=== PATIENT | male | born 1950 ===

== ENCOUNTER 2021-02-02 09:11 | Outpatient (REF) | payer SELFPAY | END 2021-02-02 09:12 | disposition home or self-care (01) | LOC: HO.HAP 09:11 | PROVIDERS: Visit Provider Family Medicine | DX: Z13.89 Encounter for screening for other disorder (principal) ==

== ENCOUNTER 2021-02-03 10:20 | Outpatient (REF) | payer SELFPAY ==
--- NOTE | 2021-02-03 13:12 | MHC.AU.HFU ---
Hearing Instrument Follow-Up- Binaural Date of Visit: 02/03/21 Right Ear: Sheet Mill Supervisor: Phonak Model: Bolero Q 50-SP BTE Serial Number: [id number] Repair Warranty: Battery Size: 13 Color: Silver Azul Tubing: Tube Lock Type of Mold: Microsonic Skeleton Dispensed By: [facility] Date of Fittin05/23/2014 Left Ear:Sheet Mill Supervisor: Phonak Model: Bolero Q 50-SP NOW PROGRAMMED FOR THE RIGHT EAR PER PATIENT REQUEST Serial Number: [id number] Repair Warranty: Battery Size: 13 Color: Silver Azul Tubing: Tube Lock Type of Mold: Microsonic Skeleton Dispensed By: [facility] Date of Fittin05/23/2014 Follow-Up Summary: Patient reports he needs the right aid to be louder as he continues to need to increase the volume and he wants the left aid to be programmed for the right ear. Discussed how increasing volume may actually make understanding worse since it may cause distortion. Patient insisted he wanted the aids louder and I increased to patient preference. Transferred right aid setting to the left aid. Patient wanted the aids even louder, but reaching limits of the aids. Patient said after yesterday's appointment when he continued to not hear well, he changed the hearing aids and earmolds several times so he did not know which aid or mold he was using. We did change to patient's old right earmold which seems to fit a bit better without feedback. Patient also thought we broke his left earmold yesterday when cleaning and retubing the mold/aids. As documented yesterday, the left earmold skeleton area was split before the aids were touched in the office and reminded patient we had discussed that yesterday. Patient reported he had not been wearing the left aid for a period of time so he does not remember it being broken. While patient was in the appointment with me today, he received a phone call from the [employer] as he was looking for executive vice president and chief financial officer for a new hearing aid for the right ear. This program will only document the cost of the hearing aid by a paid receipt from the dispenser as a medical expense which helps with tax deductions. They do not provide direct financial support for patient cost. Patient was hearing the phone call much better due to the programming change to the aid just prior to the phone call. However, his comprehension of the explanation from [employer] calling was misinterpreted by the patient. He continued to think the program would help him with the payment for an aid. I needed to explain several times in different ways to help him understand that if he went through this program, he had to pay in full and he would only receive a statement documenting the medical expense for taxes. Wrote a detailed note for the patient to [facility] to see if he can change his plan which has hearing aid benefits. Patient still has not contacted [facility] or Dr. Irving as advised (gave written information with phone numbers and questions to ask). Extensively reviewed the need to contact [facility], [facility], and Dr. Irving. Recommendations:Discussed again the need for new earmolds for both ears. Also discussed how both aids cannot connect for programming which means there is an internal problem with both aids. This office cannot fix the problem and he needs repairs. Patient is considering one new hearing aid. If he does not have any [employer] coverage or not eligible for [facility], he was told he must pay the $350.00 deposit, then $450.00 at the Hearing Aid Fitting. Can set up a payment plan for second half. Diagnosis Code(s): Primary Diagnosis: H90.6 Mixed Hearing Loss, Bilateral Signature: Provider: Marisol Martino, CCC-A
== END 2021-02-03 10:21 | disposition home or self-care (01) ==
LOC: HO.HAP 10:20
PROVIDERS: Visit Provider Family Medicine
DX: Z13.89 Encounter for screening for other disorder (principal)

== ENCOUNTER 2021-07-30 08:33 | Outpatient (REF) | payer SELFPAY | END 2021-07-30 08:34 | disposition home or self-care (01) | LOC: HO.HAP 08:33 | PROVIDERS: Visit Provider Family Medicine | DX: Z13.89 Encounter for screening for other disorder (principal) ==

== ENCOUNTER 2021-08-12 10:21 | Outpatient (REF) | payer SELFPAY | END 2021-08-12 10:22 | disposition home or self-care (01) | LOC: HO.HAP 10:21 | PROVIDERS: Visit Provider Family Medicine | DX: Z13.89 Encounter for screening for other disorder (principal) ==

== ENCOUNTER 2021-09-03 11:17 | Outpatient (REF) | payer SELFPAY ==
--- NOTE | 2021-09-16 11:45 | MHC.AU.HFU ---
Hearing Instrument Follow-Up- Binaural Date of Visit: 09/03/21 Right Ear: Data Designer: Phonak Model: Kayla P 70-UP Serial Number: [id number] Repair Warranty: 09/21/2024 Loss and Damage Warranty: 09/21/2024 Battery Size: 675 Color: Silver Azul Tubing: Tube Lock Dispensed By: [facility] Date of Fittin07/28/2021 Left Ear: Data Designer: Phonak Model: Kayla P 70-UP Serial Number: [id number] Repair Warranty: 09/21/2024 Loss and Damage Warranty: 09/21/2024 Battery Size: 675 Color: Silver Azul Tubing: Tube Lock Dispensed By: [facility] Date of Fittin07/28/2021 Follow-Up Summary: Patient reports he feels the hearing aids are not balanced, with the left side louder than the right. Increased gain in the right side and decreased gain in the left side. Patient was pleased with the change, reporting it now sounds balanced. Patient also reported that when he is using his phone, it feels like the sound around him cuts out. He does not want the microphone level to be the same as the phone; however, he would like it to not be as jarring of a transition. Changed hearing aid microphone mix from -6 dB to -3 dB. Recommendations: Hearing instrument follow-up or maintenance as needed. Diagnosis Code(s): Primary Diagnosis: H90.3 Bilateral Sensorineural Hearing Loss Signature: Provider: Marisol Muse, CCC-A
== END 2021-09-03 11:18 | disposition home or self-care (01) ==
LOC: HO.HAP 11:17
PROVIDERS: Visit Provider Family Medicine
DX: Z13.89 Encounter for screening for other disorder (principal)

== ENCOUNTER 2021-10-14 14:35 | Outpatient (REF) | payer SELFPAY | END 2021-10-14 14:36 | disposition home or self-care (01) | LOC: HO.HAP 14:35 | PROVIDERS: Visit Provider Family Medicine | DX: Z13.89 Encounter for screening for other disorder (principal) ==

== ENCOUNTER 2022-01-10 12:54 | Outpatient (REF) | payer SELFPAY ==
--- NOTE | 2022-01-11 10:50 | MHC.AU.HFU ---
Hearing Instrument Follow-Up- Binaural Date of Visit: 01/10/22 Right Ear: Phonak Kayla P70-UP SN: [id number] Color: Silver Azul Repair Warranty: 09/21/2024 Loss and Damage Warranty: 09/21/2024 Battery Size: 675 Type of Mold: Microsonic Skeleton Dispensed By: [facility] Date of Fittin07/28/2021 Left Ear: Phonak Kayla P70-UP SN: [id number] Color: Silver Azul Repair Warranty: 09/21/2024 Loss and Damage Warranty: 09/21/2024 Battery Size: 675 Type of Mold: Microsonic Skeleton Dispensed By: [facility] Date of Fittin07/28/2021 Follow-Up Summary: Blaine dropped off his right hearing aid as the tone hook was broken. Cleaned the hearing aid and ear mold. Vacuumed the microphones. Replaced the tubing. Did not have adult tone hooks in stock - called [employer] to order more. Replaced broken tone hook with pediatric tone hook to use in the meantime. Recommendations: Called Blaine to explain above. He will waste picker hearing aid to use with pediatric tone hook while waiting for adult tone hooks to arrive. Once adult tone hooks arrive, call Blaine to schedule an appointment to replace the pediatric tone hook. Diagnosis Code(s): Primary Diagnosis: H90.3 Bilateral Sensorineural Hearing Loss Signature: Provider: Randolph Noe, [facility]
== END 2022-01-10 12:55 | disposition home or self-care (01) ==
LOC: HO.HAP 12:54
PROVIDERS: Visit Provider Family Medicine
DX: Z13.89 Encounter for screening for other disorder (principal)

== ENCOUNTER 2022-01-11 11:07 | Outpatient (REF) | payer SELFPAY | END 2022-01-11 11:08 | disposition home or self-care (01) | LOC: HO.HAP 11:07 | PROVIDERS: Visit Provider Family Medicine | DX: Z13.89 Encounter for screening for other disorder (principal) ==

== ENCOUNTER 2022-01-18 14:11 | Outpatient (REF) | payer SELFPAY | END 2022-01-18 14:12 | disposition home or self-care (01) | LOC: HO.HAP 14:11 | PROVIDERS: Visit Provider Family Medicine | DX: Z13.89 Encounter for screening for other disorder (principal) ==

== ENCOUNTER 2022-01-26 10:58 | Outpatient (REF) | payer SELFPAY | END 2022-01-26 10:59 | disposition home or self-care (01) | LOC: HO.HAP 10:58 | PROVIDERS: Visit Provider Family Medicine | DX: Z13.89 Encounter for screening for other disorder (principal) ==

== ENCOUNTER 2022-02-04 14:24 | Outpatient (REF) | payer SELFPAY ==
--- NOTE | 2022-02-04 15:03 | MHC.AU.HA3 ---
Hearing Instrument Follow-Up- Binaural Date of Visit: 02/04/22 Right Ear: Make, Model, Color, Serial Number: Zhou Chinoida P70-UP SN: [id number] Color: Silver Azul Muskrat Trapper Repair Warranty: 09/21/2024 Muskrat Trapper Loss and Damage Warranty: 09/21/2024 [facility] Service Plan: 07/28/2022 [facility] Battery Size: 675 Earmold/Dome/CShell/SlimTip:Microsonic Skeleton Dispensed By: [facility] Date of Fittin07/28/2021 Left Ear: Make, Model, Color, Serial Number: Phonrylie Kayla P70-UP SN: [id number] Color: Silver Azul Muskrat Trapper Repair Warranty: 09/21/2024 Muskrat Trapper Loss and Damage Warranty: 09/21/2024 [facility] Service Plan: 07/28/2022 [facility] Battery Size: 675 Earmold/Dome/CShell/SlimTip: Microsonic Skeleton Dispensed By: [facility] Date of Fittin07/28/2021 Follow-Up Summary: Blaine reported his hearing aids are not streaming phone calls from his cell phone. The hearing aids were not paired to his phone. Repaired the hearing aids and confirmed connection with a phone call in office. Gave Blaine a print out of [employer] instructions for pairing hearing aids to an Android phone for future use. Blaine also reported that he sometimes hears feedback with jaw movement. Did not hear in office today. Advised to ensure molds are pushed securely into ears. Trimmed left tubing slightly. Recommendations: Hearing instrument follow-up or maintenance as needed. Please contact our clinic with any questions or concerns. Diagnosis Code(s): Primary Diagnosis: H90.3 Bilateral Sensorineural Hearing Loss Signature: Provider: Randolph Noe, [facility]
== END 2022-02-04 14:25 | disposition home or self-care (01) ==
LOC: HO.HAP 14:24
PROVIDERS: Visit Provider Family Medicine
DX: Z13.89 Encounter for screening for other disorder (principal)

== ENCOUNTER 2022-03-07 14:02 | Outpatient (REF) | payer SELFPAY ==
--- NOTE | 2022-03-07 15:33 | MHC.AU.HA3 ---
Hearing Instrument Follow-Up- Binaural Date of Visit: 03/07/22 Right Ear: Make, Model, Color, Serial Number: Zhou Garza P70-UP SN: [id number] Color: Silver Azul Cut In Station Operator Repair Warranty: 09/21/2024 Cut In Station Operator Loss and Damage Warranty: 09/21/2024 [facility] Service Plan: 07/28/2022 [facility] Battery Size: 675 Earmold/Dome/CShell/SlimTip:Microsonic Skeleton Dispensed By: [facility] Date of Fittin07/28/2021 Left Ear: Make, Model, Color, Serial Number: Zhou Garza P70-UP SN: [id number] Color: Silver Azul Cut In Station Operator Repair Warranty: 09/21/2024 Cut In Station Operator Loss and Damage Warranty: 09/21/2024 [facility] Service Plan: 07/28/2022 [facility] Battery Size: 675 Earmold/Dome/CShell/SlimTip: Microsonic Skeleton Dispensed By: [facility] Date of Fittin07/28/2021 Follow-Up Summary: Blaine reported that his hearing aids became disconnected from his cellphone after he worked with [email or web address] for other non-hearing aid related issues with his phone. He reportedly tried following the directions given at the last appointment without success. Repaired the hearing aids to his cellphone in office and confirmed successful connection with a phone call. Fam'ilene [id number] directions with Blaine for repairing. Practiced following the steps in office to be able to re-pair at home. Recommendations:Hearing instrument follow-up or maintenance as needed. Diagnosis Code(s): Primary Diagnosis: H90.6 Mixed Hearing Loss, Bilateral Signature: Provider: Randolph Noe, [facility]
== END 2022-03-07 14:03 | disposition home or self-care (01) ==
LOC: HO.HAP 14:02
PROVIDERS: Visit Provider Family Medicine
DX: Z13.89 Encounter for screening for other disorder (principal)

== ENCOUNTER 2022-05-20 12:44 | Outpatient (REF) | payer SELFPAY | END 2022-05-20 12:45 | disposition home or self-care (01) | LOC: HO.HAP 12:44 | PROVIDERS: Visit Provider Family Medicine | DX: Z13.89 Encounter for screening for other disorder (principal) ==

== ENCOUNTER 2023-04-11 11:25 | Outpatient (REF) | payer SELFPAY | END 2023-04-11 11:26 | disposition home or self-care (01) | LOC: HO.HAP 11:25 | PROVIDERS: Visit Provider Family Medicine | DX: Z13.89 Encounter for screening for other disorder (principal) ==

== ENCOUNTER 2023-05-23 12:53 | Outpatient (REF) | payer OTHER, SELFPAY | END 2023-05-23 12:54 | disposition home or self-care (01) | LOC: HO.HAP 12:53 | PROVIDERS: Visit Provider Family Medicine | DX: Z46.1 Encounter for fitting and adjustment of hearing aid (principal); H90.6 Mixed conductive and sensorineural hearing loss, bilateral | CPT/HCPCS: 92593 ==

== ENCOUNTER 2023-07-06 13:42 | Outpatient (REF) | payer MEDICARE, MEDICAID, SELFPAY | END 2023-07-06 13:43 | disposition home or self-care (01) | LOC: HO.HAP 13:42 | PROVIDERS: Visit Provider Family Medicine | DX: Z46.1 Encounter for fitting and adjustment of hearing aid (principal); H90.3 Sensorineural hearing loss, bilateral | CPT/HCPCS: 92593 ==

== ENCOUNTER 2023-07-26 08:11 | Outpatient (REF) | payer SELFPAY | END 2023-07-26 08:12 | disposition home or self-care (01) | LOC: HO.HAP 08:11 | PROVIDERS: Visit Provider Family Medicine | DX: Z13.89 Encounter for screening for other disorder (principal) ==

== ENCOUNTER 2023-08-09 08:12 | Outpatient (AMB) | payer MEDICARE, MEDICAID, SELFPAY ==
[2023-08-09 08:16] VITALS: BP 140/90; PULSE 80; O2SAT 97; BMI 31.8
--- NOTE | 2023-08-09 08:16 | AM.OFFWIN_ITS ---
Intake Vital Signs 08/09/23 08:16 Height 5 ft 6 in Weight 197 lb BMI 31.8 BP 140/90 H Blood Pressure Location Rt brachial Position Sitting Pulse 80 Pulse Source Pulse Oximeter Pulse Oximetry (%) 97 Oxygen Delivery Method Room Air Intake Visit Reasons: EP rt knee pain Intake Note: pt is here for right knee pain Patient Tobacco Use Status: Never used Tobacco Allergies No Known Allergies Allergy (Verified 08/09/23 08:16) Do you need a note to return to daycare/school/sports/work: No HPI HPI Comments History of Present Illness Details 73-year-old male presents today with rig ht knee pain and effusion after suffering a twisting injury while walking his dog. States he has trouble with full extension and complains of pain. No other injury in the fall no loss of consciousness or head injury. [facility] Social History Patient Tobacco Use Status: Never used Tobacco Review of Systems Const All systems reviewed & are unremarkable except as noted in HPI and below Physical Exam Vital Signs: Last Vital Signs Pulse 80 08/09/23 08:16 BP 140/90 H 08/09/23 08:16 Pulse Ox 97 08/09/23 08:16 Oxygen Delivery Method Room Air 08/09/23 08:16 BMI result Body Mass Index 31.8 Extrem Right lower extremity: knee Details: tenderness (Lateral and inferior to the patella), swelling (2+ effusion), abnormal ROM and knee ligament exam abnormal (Pain with extension) Details: pain with axial loading Results Reviewed Results Reviewed: X-ray today shows a high-riding patella evidence of large effusion. It appears he has 2 vascular clips behind his knee but has no history of surgery. Assessment & Plan Assessment & Plan (1) Right knee pain: Code(s): M25.561 - Pain in right knee Plan: The patient was given a drop lock knee brace a [facility] It was instructed to avoid ladders and be sure he was balanced on stairs Plan See plan Orders: Orders XR knee RT 2V Today M25.561 - Pain in right knee Referrals Orthopedics Referral M25.561 - Pain in right knee Medications: New meloxicam 7.5 mg PO DAILY 10 tabs 0RF Coding Level of Care Code Est Pt Level 3 (73420) Diagnoses Right knee pain M25.561
== END 2023-08-09 09:34 | disposition home or self-care (01) ==
PROVIDERS: PCP Family Medicine; Visit Provider Physician Assistant Medical
DX: M25.561 Pain in right knee (principal)
CPT/HCPCS: 99213

== ENCOUNTER 2023-08-09 08:41 | Outpatient (REF) | payer MEDICARE, MEDICAID, SELFPAY ==
--- NOTE | ~2023-08-09 | XR_ITS ---
EXAMINATION: XR KNEE, RIGHT CLINICAL INFORMATION: Right-sided knee pain COMPARISON: None available. TECHNIQUE: Four views of the right knee. FINDINGS: Spurring of the tibial spines noted. Extensive posterior vascular calcifications are noted. There is patellofemoral degenerative change observed as is a small joint effusion. No fracture or destructive process. XR/XR knee RT 2V IMPRESSION: Joint effusion. Degenerative change noted.
== END 2023-08-09 08:42 | disposition home or self-care (01) ==
LOC: HO.HMGCX 08:41
PROVIDERS: PCP Family Medicine; Visit Provider Physician Assistant Medical
DX: M25.561 Pain in right knee (principal)
CPT/HCPCS: 73560

== ENCOUNTER 2023-09-20 08:45 | Outpatient (AMB) | payer MEDICARE, MEDICAID, SELFPAY ==
--- NOTE | 2023-09-20 08:46 | MHC.OFFVIS ---
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 Pt states he fell on his knee and then about 3 days later his leg gave out. Pt states his pain is no longer severe but states he has some intermittent discomfort. He states that he has had similar discomfort in the past which resolved on its own. He takes ibuprofen which gives him fairly good relief. Allergies No Known Allergies Allergy (Verified 09/20/23 08:46) Medication List - Last Reconciled 09/20/23 by Luis Robledo MD fluticasone propionate 50 mcg/actuation sprays intranasal ibuprofen (Advil) 400 mg PO Q6H PFS Social History Patient Tobacco Use Status: Never used Tobacco Physical Exam Const Other: Well-nourished well-developed very friendly male awake alert and oriented x3 in no acute distress Extrem Other: Bilateral lower extremity examination shows good capillary refill, no skin lesions noted, normal sensation light touch Right knee examination shows a minimal effusion, minimal crepitus with range of motion, tenderness along his medial joint line, positive Annmarie's test, no instability Results Reviewed Results Reviewed: X-rays of the patient's right knee show mild joint space narrowing, no acute bony abnormalities Assessment & Plan Assessment & Plan (1) Right knee pain: Code(s): M25.561 - Pain in right knee Category: Medical Plan Mr. Tamez presents with intermittent right knee discomfort due to early degenerative joint disease as well as possible tearing of his medial meniscus. I had a lengthy discussion with the patient regarding the treatment options. At this point the patient's symptoms are improving with activity modifications. We will hold off on a cortisone injection. Will follow up with me on an as-needed basis should his symptoms not plateau at an unacceptable level over the next few months. Feel free to call me at any time should questions regarding his orthopedic management arise. I spent 22 minutes in reviewing the patient's records and imaging studies, seeing the patient and documenting in the medical record. Coding Level of Care Code New Pt Level 3 (95074) Diagnoses Right knee pain M25.561
== END 2023-09-20 09:16 | disposition home or self-care (01) ==
PROVIDERS: PCP Family Medicine; Visit Provider Orthopaedic Surgery
DX: M17.11 Unilateral primary osteoarthritis, right knee (principal)
CPT/HCPCS: 99203

== ENCOUNTER → 2023-09-20 08:45 | Outpatient (BNVA) | payer MEDICARE, MEDICAID, SELFPAY | PROVIDERS: PCP Family Medicine; Visit Provider Orthopaedic Surgery | DX: M25.561 Pain in right knee (principal) | CPT/HCPCS: 99202 ==

== ENCOUNTER 2024-09-05 14:23 | Outpatient (REF) | payer SELFPAY ==
--- OUTSIDE RECORDS SUMMARY | 2024-09-05 14:28 | XMS_ITS | Encounter Summary ---
Author Organization [employer] Address [address] [place] [address] Care Team Providers Care Watcher Lookout Tower Name Role Phone Unavailable Primary Care Provider Unavailabl e Reason for Visit * Reason Onset Date Comments case 05/08/2023 Encounter Details Date Type Department Care Team (Late st Contact Info) Description 05/08/2023 Telephone [facility] [address], [place] [phone] Raul Rothman DDS [address], [place] [phone] case Social History Tobacco Use Types Packs/Day Years Used Date Smoking Tobacco: Former Cigarettes Smokeless Tobacco: Never Alcohol Use Standard Drinks/Week Comments Defer 0 (1 standard drink = 0.6 oz pur e alcohol) Sex and Gender Information Value Date Recorded Sex Assigned at Male 12/13/2021 10:35 AM EDT Legal Sex Male 10:35 AM EDT Gender Identity Male 12/13/2021 10:35 AM EDT Sexual Orientation Straight 12/13/2021 10 :35 AM EDT documented as of this encounter Miscellaneous Notes * Telephone Encounter - Marianna Gonzalez - 05/08/2023 1:10 PM EDT Patient wanted to confirm if case is back from lab. He would like a call back to confirm if they are back from lab DR documented in this encounter Plan of Treatment Not on file documented as of this encounter Visit Diagnoses Not on filedocumented in this encounter
== END 2024-09-05 14:24 | disposition home or self-care (01) ==
LOC: HO.HAP 14:23
PROVIDERS: Visit Provider Family Medicine
DX: Z46.1 Encounter for fitting and adjustment of hearing aid (principal); H90.6 Mixed conductive and sensorineural hearing loss, bilateral
CPT/HCPCS: 92593

== ENCOUNTER 2024-12-24 13:51 | Outpatient (REF) | payer SELFPAY ==
--- OUTSIDE RECORDS SUMMARY | 2024-12-24 15:28 | XMS_ITS | Encounter Summary ---
Author Organization [employer] Address [address] [facility] [address] [place] [address] Care Team Providers Care Bit Tapper Name Role Phone Unavailable Primary Care Provider Unavailabl e Encounter Details Date Type Department Care Team (Latest Contact Info) Description 08/08/2018 Abstract [facility] CONVERSIONS Dental, Provider, DDS Social History Tobacco Use Types Packs/Day Years Used Date Smoking Tobacco: Never Assessed Sex and Gender Information Value Date Recorded Sex Assigned at Male 12/13/2021 10:35 AM EDT Legal Sex Male 10:35 AM EDT Gender Identity Male 12/13/2021 10:35 AM EDT Sexual Orientation Straight 12/13/2021 10 :35 AM EDT documented as of this encounter Plan of Treatment Upcoming Encounters Date Type Department Care Team (Late st Contact Info) Description 12/26/2024 9:30 AM EST Office Visit [facility] [address] [place] [address] Kanika Hernandez documented as of this encounter Visit Diagnoses Not on filedocumented in this encounter
--- OUTSIDE RECORDS SUMMARY | 2024-12-24 15:28 | XMS_ITS | Encounter Summary ---
Author Organization [employer] [facility] Address [address] [place] [address] Care Team Providers Care Correctional Treatment Specialist Name Role Phone Unavailable Primary Care Provider Unavailabl e Reason for Visit * Reason Onset Date Comments case 05/08/2023 Encounter Details Date Type Department Care Team (Late st Contact Info) Description 05/08/2023 Telephone [facility] [address] [place], [place] [phone] Raul Rothman DDS [address], [place] [phone] case Social History Tobacco Use Types Packs/Day [...] documented in this encounter Plan of Treatment Upcoming Encounters Date Type Department Care Team (Late st Contact Info) Description 12/26/2024 9:30 AM EST Office Visit [facility] [address] [place] [address] Kanika Hernandez documented as of this encounter Visit Diagnoses Not on filedocumented in this encounter
--- OUTSIDE RECORDS SUMMARY | 2024-12-24 15:28 | XMS_ITS | Encounter Summary ---
Author Organization [employer] Address [address] [place] [address] Care Team Providers Care Start Up Specialist Name Role Phone Unavailable Primary Care Provider Unavailabl e Encounter Details Date Type Department Care Team (Latest Contact Info) Description 10/27/2020 Abstract [facility] CONVERSION[facility] Dental, Provider, DDS Social History Tobacco [...] Description 12/26/2024 9:30 AM EST Office Visit [facility] [address] [place] [address] Kanika Hernandez documented as of this encounter Visit Diagnoses Not on filedocumented in this encounter
--- OUTSIDE RECORDS SUMMARY | 2024-12-24 15:28 | XMS_ITS | Data Portability ---
Author Organization [place] - [facility] Address [address] [place] [address] Care Team Providers Care Driller Portable Name Role Phone ROVERTO CODY Primary Care Provider Assessment Encounter Date Assessment Date Assessment LastModified by Organization Details LastModified Time 07/19/2024 07/19/2024 1 . Cervical spondylosis with radiculopathy 2. Right shoulder impingement syndrome 3. History of lumbar burst fracture with persistent lower extremity symptoms 4. Possible carotid stenosis requiring further evaluation 1. Initiate gabapentin 300mg three times daily, starting with nighttime dosing 2. Continue acetaminophen as needed 3. Referral to physical therapy for cervical spine 4. Referral to shoulder specialist for evaluation and possible injection 5. Follow-up in 6-8 weeks after completing physical therapy 6. Consider MRI lumbar spine at next visit to evaluate persistent lower extremity symptoms 7. Recommend PCP evaluation for visual changes with head turning ICD-10: M47.12 - Cervical spondylosis with radiculopathy ICD-10: M75.41 - Right shoulder impingement syndrome ICD-10: S22.060 - History of lumbar vertebral burst fracture [email or web address] Not available 07/19/2024 13:47:38 Plan of Treatment Reminders Order Date Submit Date Provider Last Modified By Organization Details Last Modified Time Details Appointments None recorded. Lab None recorded. Referral physical therapist referral - Evaluate & Rx Cervical Stabiliza tion Program 2024 025 [email or web address] Not available 14:27:42 physical therapist referral - Evaluate & Rx Lumbar Stabiliza tion Program 2024 025 [email or web address] Not available 15:53:07 Procedures None recorded. Surgeries None recorded. Imaging XR, cervical spine, 4 or 5 view 2024 025 [facility], [address], [place], [address], 5 14:27:42 XR, shoulder, 2 or more view - 326 right shoulder 2v 2024 025 [email or web address] [facility], [address], [address], [place], [address], 5 14:27:42 XR, lumbar spine, 2 view - 325 2v l spine 2024 025 [facility], [address], [place], [address], 5 13:18:15 XR, lumbosacr al spine, 4 or more view - 325 4v lspine 2024 025 [email or web address] [facility], [address], [address], [place], [address], 5 14:08:20 XR, lumbar spine, 2 view - rm 1 ls 2024 025 [email or web address] [facility], [address], [place], [address], 5 08:09:49 Medication Orders gabapenti n 300 mg capsule 2024 025 [email or web address] Not available 08:08:37 Patient TargetsNo targets recorded. Patient InstructionsNo instructions recorded. Reason for Referral Physical Therapist Referral for Closed fracture lumbar vertebra, burst Evaluate & RxLumbar Stabilization Program Referring Physician: Sam Lewis, Orthopedic Surgery, Encounter Date: 03/05/2024 Physical Therapist Referral for Cervical spondylosis Evaluate & RxCervical Stabilization Program Referring Physician: Sam Lewis, Orthopedic Surgery, Encounter Date: 07/19/2024 Results Created Date Observation Date Name Description Value Unit Range Abnormal Flag Note LastModifiedBy Organization Detail LastModifiedTime 01/18/20 24 01/18/2024 XR, pelvi s, 3 or more view [email or web address]:/ [email or web address] ?Encry pted=s hAaTro YD8dLq bEUv6g %2BXZw aYqtaq 0bqfl% 2Fg9IQ a4ajBk vP9nXo QUaueC m3YtLR FvZlgJ JJ8mAn HZtai3 4s7748 AC0Kqa XqMUqe mKiQtr MwF INTERFACE [facility] [address], [place], [address], 01/18/2024 09:37:47 01/18/20 24 01/18/2024 XR, pelvi s, 3 or more view http:/ [email or web address] ?Encry pted=s hAaTro YD8dLq bEUv6g %2BXZw aYqtaq 0bqfl% 2Fg9IQ a4ajBk vP9nXo QUaueC m3YtLR FvZlgJ JJ8mAn HZtai3 0q5586 AC0Kqa XqMUqe mKiQtr MwF INTERFACE [facility] [address], [place], [address], 01/18/2024 09:37:49 02/26/19 25 02/25/2024 MRI, lumba r spine , w/o contr ast [facility] Access ion Number : [id number] Patiiliana t Name: Blaine Tamez Record Number : [id number] Date of : 1950 Date of Exam: 2024 Referr ing Physic elaine: [facility] ([facility]) [address], [address] [place] [address] Exam: MR Lumbar Spine (C-) CPT 30003 [facility] ([facility]-) CPT 08591 INDICA TION: Compre ssion fractu re of L5 verteb ra , initia l encoun ter TECHNI QUE: Multip lanar, multis equenc e MRI of the lumbar spine was perfor med withou t intrav enous contra st. COMPAR HARDEEP: CT lumbar spine . FINDIN GS: NUMBER ING: The study assume s 5 non-ri b-bear ing lumbar type verteb ral bodies . ALIGNM ENT, VERTEB DIOMEDES, MARROW , AND DISCS: Severe anteri or wedge compre ssion fractu re of L1 is presen t, with kyphot ic deform ity at this level, and retrop ulsion of the care clinician ior cortex by 8 mm. Loss of height and retrop ulsion have progre ssed since the CT of . There is mild associ ated edema in the verteb ral body. No edema seen in the care clinician ior elemen ts. Remain ing verteb ral body height s are preser aleksandr. Previo usly descri bed transv erse proces s fractu res seen on CT are not well seen on MRI. There is no associ ated edema at these sites. There is a linear fractu re throug h the right sacral ala, corres pondin g to findin gs on CT, with mild associ ated edema. Apart from focal kyphos is at the level of L1, alignm ent is otherw ise preser aleksandr. No suspic ious marrow lesion s are seen. Interv ertebr al discs are desicc ated from L1 throug h S1, with mild scatte red loss of disc space care clinician iorly. CONUS: The conus is normal in signal and contou r, with normal level of termin ation at L1. PARASP INAL TISSUE S: Mild nonspe cific edema seen in the subcut aneous fat of the lower back. There is mild fatty atroph y of the care clinician ior parasp inal muscle s symmet evangelina. Remain ing visual ized parasp inal soft tissue s are unrema rkable . DETAIL ED FINDIN GS BY LEVEL: T12-L1 : Retrop ulsion of the care clinician ior cortex of L1 result s in mild to modera te centra l stenos is at this level, though there is no compre ssion of the conus. No signif icant neural forami nal narrow ing. L1-L2: Retrop ulsed care clinician ior cortex of L1, with mild centra l stenos is at this level. Mild bilate ral neural forami nal narrow ing. L2-L3: Broad- based disc bulge, slight ly eccent evangelina to the right. Minima l centra l stenos is. Mild bilate ral neural forami nal narrow ing, right greate r than left. L3-L4: Mild broad- based disc bulge. Mild facet spurri ng. Minima l centra l stenos is. Mild bilate ral neural forami nal narrow ing. L4-L5: Disc bulge and bilate ral facet spurri ng. Mild narrow ing of the subart icular recess es withou t nerve root compre ssion. Otherw ise no signif icant centra l stenos is. Mild bilate ral neural forami nal narrow ing. L5-S1: Small care clinician ior disc bulge and mild facet spurri ng. No signif icant centra l stenos is or neural forami nal narrow ing. IMPRES STEPHY: 1. Severe compre ssion fractu re of L1 with retrop ulsion of the care clinician ior cortex and kyphos is at this level, progre ssed since 024, associ ated with mild to modera te centra l stenos is at this level. There is minima l associ ated edema, which may reflec t acute on chroni c fractu re compon ent or stress reacti on. 2. Trace edema is also seen associ ated with the known fractu re of the right sacrum , which may reflec t persis tent stress reacti on. 3. Degene rative change s in the remain donald of the lumbar spine as above, withou t high-g rade stenos is. Electr onical ly Signed By: Natalia Dunn MD [email or web address] [facility] ([facility]) [address], [place], [address], 02/27/2024 13:41:03 03/05/19 25 03/05/2024 XR, lumbo sacra l spine , 4 or more view [email or web address] ?Encry pted=s hAaTro YD8dLq bEUv6g %2BXZw aYqtaq 0bqfl% 2Fg9IQ a4ajBk vP9nXo QUaueC m3YtLR FvZlgJ JJ8mAn HZtai3 1x2595 AC0Kqb 3qHVae gKiQtr MwF INTERFACE [facility] [address], [place], [address], 03/05/2024 13:26:33 03/05/19 25 03/05/2024 XR, lumbo sacra l spine , 4 or more view http:/ [email or web address] ?Encry pted=s hAaTro YD8dLq bEUv6g %2BXZw aYqtaq 0bqfl% 2Fg9IQ a4ajBk vP9nXo QUaueC m3YtLR FvZlgJ JJ8mAn HZtai3 5a0165 AC0Kqb 3qHVae gKiQtr MwF INTERFACE [facility] [address] [facility] [address] [facility] [address], [place], [address], 03/05/2024 13:26:35 05/29/19 25 05/28/2024 XR, lumba r spine , 2 view [email or web address]:/ [email or web address] ?Encry pted=s hAaTro YD8dLq bEUv6g %2BXZw aYqtaq 0bqfl% 2Fg9IQ a4ajBk vP9nXo QUaueC m3YtLR FvZlgJ JJ8mAn HZtai3 1b5725 AC0KqY 3qEU6S vKiQtr MwF INTERFACE [facility] [address] [facility] [address] [facility] [address], [place], [address], 05/28/2024 13:09:45 05/29/19 25 05/28/2024 XR, lumba r spine , 2 view http:/ [email or web address] ?Encry pted=s hAaTro YD8dLq bEUv6g %2BXZw aYqtaq 0bqfl% 2Fg9IQ a4ajBk vP9nXo QUaueC m3YtLR Zl [facility] 1p9975 AC0KqY 3qEU6S vKiQtr MwF INTERFACE [facility] [address], [place], [address], 05/28/2024 13:09:47 07/20/19 25 07/19/2024 XR, cervi winston spine , 4 or 5 view [email or web address]:/ [email or web address] ?Encry pted=s hAaTro YD8dLq bEUv6g %2BXZw aYqtaq 0bqfl% 2Fg9IQ a4ajBk vP9nXo QUaueC m3YtLR Zl [facility] 2p4736 AC0Kla H2MVaW gKiQtr MwF INTERFACE [facility] [address], [place], [address], 07/19/2024 13:11:31 07/20/19 25 07/19/2024 XR, cervi winston spine , 4 or 5 view [email or web address]:/ [email or web address] ?Encry pted=s hAaTro YD8dLq bEUv6g %2BXZw aYqtaq 0bqfl% 2Fg9IQ a4ajBk vP9nXo QUaueC m3YtLR Zl [facility] 3t9501 AC0Kla H2MVaW gKiQtr MwF INTERFACE [facility] [address] [facility] [address], [place], [address], 07/19/2024 13:11:32 07/20/19 25 07/19/2024 XR, shoul donald, 2 or more view [email or web address] ?Encry pted=s hAaTro YD8dLq bEUv6g %2BXZw aYqtaq 0bqfl% 2Fg9IQ a4ajBk vP9nXo QUaueC m3YtLR FvZlgJ JJ8mAn HZtai3 4l6213 AC0Kla H2MVaW hKiQtr MwF INTERFACE [facility] [address], [place], [address], 07/19/2024 13:13:22 07/20/19 25 07/19/2024 XR, wandy donald, 2 or more view http:/ [email or web address] ?Encry pted=s hAaTro YD8dLq bEUv6g %2BXZw aYqtaq 0bqfl% 2Fg9IQ a4ajBk vP9nXo QUaueC m3YtLR FvZlgJ JJ8mAn HZtai3 9h6285 AC0Kla H2MVaW hKiQtr [facility] INTERFACE [facility] Office [address] [facility] [address], [place], [address], 07/19/2024 13:13:23 Result Notes Documentation Provider Name and Address Organization Details Recorded Time Mri, Lumbar Spine, W/o Contrast : [facility] Accession Number: [id number] Patient Name: Blaine Tamez Date of : 1950 Date of Exam: 02-25-2024 Referring Physician: Natalee Fernandez [facility] ([facility]) [address] [facility], [address] [place] [address] Exam: MR Lumbar Spine (C-) CPT 28794 Room Description: [facility] 3T MR Lumbar Spine (C-) CPT 17595 INDICATION: Compression fracture of L5 vertebra , initial encounter TECHNIQUE: Multiplanar, multisequence MRI of the lumbar spine was performed without intravenous contrast. COMPARISON: CT lumbar spine 11/05/2023. FINDINGS: NUMBERING: The study assumes 5 dzh-vqb-podnevu lumbar type vertebral bodies. ALIGNMENT, VERTEBRAE, MARROW, AND DISCS: Severe anterior wedge compression fracture of L1 is present, with kyphotic deformity at this level, and retropulsion of the posterior cortex by 8 mm. Loss of height and retropulsion have progressed since the CT of 11/05/2023. There is mild associated edema in the vertebral body. No edema seen in the posterior elements. Remaining vertebral body heights are preserved. Previously described transverse process fractures seen on CT are not well seen on MRI. There is no associated edema at these sites. There is a linear fracture through the right sacral ala, corresponding to findings on CT, with mild associated edema. Apart from focal kyphosis at the level of L1, alignment is otherwise preserved. No suspicious marrow lesions are seen. Intervertebral discs are desiccated from L1 through S1, with mild scattered loss of disc space posteriorly. CONUS: The conus is normal in signal and contour, with normal level of termination at L1. PARASPINAL TISSUES: Mild nonspecific edema seen in the subcutaneous fat of the lower back. There is mild fatty atrophy of the posterior paraspinal muscles symmetric. Remaining visualized paraspinal soft tissues are unremarkable. DETAILED FINDINGS BY LEVEL: T12-L1: Retropulsion of the posterior cortex of L1 results in mild to moderate central stenosis at this level, though there is no compression of the conus. No significant neural foraminal narrowing. L1-L2: Retropulsed posterior cortex of L1, with mild central stenosis at this level. Mild bilateral neural foraminal narrowing. L2-L3: Broad-based disc bulge, slightly eccentric to the right. Minimal central stenosis. Mild bilateral neural foraminal narrowing, right greater than left. L3-L4: Mild broad-based disc bulge. Mild facet spurring. Minimal central stenosis. Mild bilateral neural foraminal narrowing. L4-L5: Disc bulge and bilateral facet spurring. Mild narrowing of the subarticular recesses without nerve root compression. Otherwise no significant central stenosis. Mild bilateral neural foraminal narrowing. L5-S1: Small posterior disc bulge and mild facet spurring. No significant central stenosis or neural foraminal narrowing. IMPRESSION: 1. Severe compression fracture of L1 with retropulsion of the posterior cortex and kyphosis at this level, progressed since 11/05/2023, associated with mild to moderate central stenosis at this level. There is minimal associated edema, which may reflect acute on chronic fracture component or stress reaction. 2. Trace edema is also seen associated with the known fracture of the right sacrum, which may reflect persistent stress reaction. 3. Degenerative changes in the remainder of the lumbar spine as above, without high-grade stenosis. Electronically Signed By: Alysas rodriguez [place] - [facility] [facility] 02/27/2024 13:41:03 Xr, Lumbosacral Spine, 4 Or More View : [email or web address] Encrypted=zvQhOcgPP0oWstD Uv6g%9TADsgKmjiu9asjx%2Fg 4NSk1evCvcM3gEcTEnwiQk9Vd RVFqLsbIYU6gHvYUeqx55u913 1DM1Ujv3uKYzhrTtTjkZsF Not Available [facility] 03/05/2024 13:26:34 Xr, Lumbosacral Spine, 4 Or More View : [email or web address] Encrypted=alYcVoiQL1dLgmH Uv6g%5FFHoqRrbxu1accy%2Fg 3BMa4ueRitA9dUqKPpvoMy3Ag YSYjAdgXHL4aGpBCxvp10n597 5OP6Ywb0cPRckrFqOdyYaM Not Available [facility] 03/05/2024 13:26:36 Xr, Lumbar Spine, 2 View : [email or web address] Encrypted=bjVbJkkCG0hVtiY Uv6g%1OCAmzJrvpd9xxzs%2Fg 5NOy9kmMinK4iCeMKajxCr2Ww HSFyBmtARL3iXeFJeqb72l755 0KQ2DtB7pKN5XvVzNllDbV Not Available [facility] 05/28/2024 13:09:46 Xr, Lumbar Spine, 2 View : [email or web address] Encrypted=ghJfPmrOW9bFvaW Uv6g%9TXHyzCrxfp8asyc%2Fg 2VCi5baHjdS6sWpKQzlaRd4Px GTHcAzcHTL0zWtBWmig19b998 9WR0BhD9kSG3CsRvMbaWiV Not Available [facility] 05/28/2024 13:09:48 Xr, Cervical Spine, 4 Or 5 View : [email or web address] Encrypted=yzRjExdUW1uWwlA Uv6g%8WZLcoEpeeu6aodt%2Fg 2SZw9myUxuV1hAwOXgtsVq5Rf ZDLoEruSQH6vEiZKpme28e163 6QG2GwcO6GCnSpReXcoOfL Not Available [facility] 07/19/2024 13:11:32 Xr, Cervical Spine, 4 Or 5 View : [email or web address] Encrypted=fiWdKqlJB9jOdcL Uv6g%8AZTjkBhhhh8veje%2Fg 3LYy6tsJyrR7qGeZAvxdXo0Iw MOPvIahEJU7gLoAIfol12g667 8CF7UiwA0OFzWzXkYcoVlG Not Available [facility] 07/19/2024 13:11:33 Xr, Shoulder, 2 Or More View : [email or web address] Encrypted=ymGcDkaUK0yXfzZ Uv6g%2GODrqEdkrw1rzlz%2Fg 3KXd9nyRczK9gQqSZifzEb9He DNLbDtsANO2aFnTDspz52u265 1IY5DfuO3STxKeHbHvuPmH Not Available [facility] 07/19/2024 13:13:22 Xr, Shoulder, 2 Or More View : [email or web address] Encrypted=crJtIooZJ5oNrqG Uv6g%2YJKfoIebwj1hang%2Fg 1YFg0xrXsdI9sWfDApjtZu5Ls AGEsDfdZWD9kTkJDjif12o705 3YG4VweL8LXjJpUuAqrAhA Not Available [facility] 07/19/2024 13:13:24 Problems Name Problem SNOMED Code Status Onset Date Resolution Date Notes Provider Name and Address Organization Details Recorded Time Closed fracture of pelvis 69146512 Active 2023 MILES LEIVA [facility] 4 09:29:27 Closed fracture lumbar vertebra, burst 035673287 Active 2024 Sam Lewis MD [address], [place], [address], [facility] 5 14:07:51 Closed fracture sacrum 622812017 Active 2024 Sam Lewis MD [address], [place], [address], [facility] 5 14:07:52 Impingement syndrome of right shoulder region 3298003968902 02 Active 2024 Sam Lewis MD [address], [place], [address], [facility] 5 14:21:01 Cervical spondylosis 888198543 Active 2024 Sam Lewis MD [address], [place], [address], [facility] 5 14:21:02 Osteoarthri tis of joint of right shoulder region 0321697382432 00 Active 2024 Chip Gregg PA-C [address], [place], [address], [facility] 5 07:28:10 Problem Notes None recorded. Procedures Surgical History Date Name Laterality Status Provider Name and Address Organization Details Recorded Time 5 Sports Shoulder completed Chip Gregg PA-C [address], [place], [address], [facility] 08/23/2024 07:28:00 Imaging Results None recorded. Procedure Notes None recorded. Medical Equipment None Reported. Allergies No known drug allergies Medications Name Sig Start Date Stop Date Status Note LastModified by Organization Details LastModified Time multivitami n tablet TAKE 1 TABLET BY MOUTH EVERY DAY 01/17 completed Not Available Not Available Not Available amoxicillin 500 mg capsule 01/17 completed Not Available Not Available Not Available acetaminoph en 325 mg tablet TAKE 1 TABLET BY MOUTH EVERY 4 HOURS NEEDED FOR PAIN 07/19 completed Not Available Not Available Not Available tizanidine 4 mg tablet TAKE 1/2 TABLET BY MOUTH EVERY 8 HOURS 01/17 completed Not Available Not Available Not Available thiamine HCl (vitamin B1) 100 mg tablet TAKE 1 TABLET BY MOUTH EVERY DAY active Not Available Not Available No t Available aspirin 81 mg tablet,sandra yed release TAKE 1 TABLET BY MOUTH DAILY 07/19 completed Not Available Not Available Not Available acetaminoph en 500 mg tablet TAKE 1 TABLET BY MOUTH EVERY 6 HOURS FOR MILD PAIN 01/17 completed Not Available Not Available Not Available meloxicam 7.5 mg tablet TAKE 1 TABLET BY MOUTH DAILY 01/17 completed Not Available Not Available Not Available tamsulosin 0.4 mg capsule TAKE 2 CAPSULES BY MOUTH DAILY AT BEDTIME 01/17 completed Not Available Not Available Not Available gabapentin 300 mg capsule Take 1 capsule 3 times a day by oral route for 30 days. 2024 active Not Available Not Available Not Avai lable lisinopril 20 mg-hydrochl orothiazide 25 mg tablet TAKE 1 TABLET BY MOUTH DAILY 03/05 completed Not Available Not Available Not Available folic acid 1 mg tablet TAKE 1 TABLET BY MOUTH DAILY 01/17 completed Not Available Not Available Not Available hydrochloro thiazide 25 mg tablet TAKE 1 TABLET BY MOUTH DAILY active Not Available Not Available No t Available pyridoxine (vitamin B6) 100 mg tablet TAKE 1/2 TABLET BY MOUTH FOR 30 DAYS 01/17 completed Not Available Not Available Not Available metoprolol succinate ER 25 mg tablet,exte nded release 24 hr TAKE 1 TABLET BY MOUTH DAILY active Not Available Not Available No t Available fluticasone propionate 50 mcg/actuati on nasal spray,suspe nsion SHAKE LIQUID AND USE 1 SPRAY IN EACH NOSTRIL TWICE DAILY 01/17 completed Not Available Not Available Not Available ipratropium bromide 21 mcg (0.03 %) nasal spray SPRAY ONCE IN EACH NOSTRIL AT BEDTIME NEEDED FOR CONGESTIO N 01/17 completed Not Available Not Available Not Available calcium 600 mg (as carbonate)- vitamin D3 20 mcg (800 unit) tablet TAKE 1 TABLET BY MOUTH TWICE DAILY FOR 30 DAYS 01/17 completed Not Available Not Available Not Available Vitals Date Recorded Body height Body mass index (BMI) Body weight Provider Name and Address Organization Details Last Updated DateTime 02/16/2024 182.88 cm 24.4 kg/m2 50094.63 g YASH ENGLAND [facility] 02/16/2024 14:48:56 Date Recorded Body height Body mass index (BMI) Body weight Provider Name and Address Organization Details Last Updated DateTime 03/05/2024 182.88 cm 24.4 kg/m2 53558.63 g Randy [facility] 03/05/2024 12:52:35 Date Recorded Body height Body mass index (BMI) Body weight Provider Name and Address Organization Details Last Updated DateTime 05/28/2024 182.88 cm 24.4 kg/m2 29014.63 g Randy [facility] 05/28/2024 13:01:57 Date Recorded Body height Provider Name an d Address Organization Details Last Updated DateTime 07/19/2024 182.88 cm Randy [facility] 07/19/2024 13:04:46 Date Recorded Body height Body mass index (BMI) Body weight Provider Name and Address Organization Details Last Updated DateTime 08/21/2024 182.88 cm 24.4 kg/m2 60036.63 g LETI SHERMAN [facility] 08/21/2024 13:57:20 Social History None recorded. Functional Status None recorded. Mental Status None recorded. Family History Nothing Reported. Medical History No medical history recorded. Gynecological HistoryNo gynecological history recorded. Obstetrics History GPAL:G 0 P 0 0 0 0 Past Encounters Encounter ID Performer Location Encounter Start Date Encounter Closed Date Diagnosis/Indication Diagnosis SNOMED-CT Code Diagnosis ICD10 Code Diagnosis IMO Codes Diagnosis Note [id number] RUIZ [facility] [address] [place] [address] 12/13/2023 09:33:02 01/08/2024 14:01:38 Pain in pelvis 78582631 R10.2 66202 Closed fra cture of pubic ramus 8189717842 S32.591A [id number] Lewis Hall MD [facility] [address] [place] [address] 01/18/2024 09:19:07 02/19/2024 12:29:54 Closed fracture of pelvis 74533929 S32.9XXD [id number] Natalee Jim, OPHTHALMIC ASSISTANT [facility] [place] [address] [place] [address] 02/16/2024 14:15:27 03/04/2024 08:09:49 Acute back pain with sciatica 847334686 M54.40 [id number] Compressio n fracture of lumbar spine 217162982 S32.050G [id number] [id number] Sam Lewis MD [facility] [place] [address] [place] [address] 03/05/2024 12:29:21 03/19/2024 19:05:36 Closed fracture lumbar vertebra, burst 184555546 S32.011G 35120592 Closed fra cture sacrum 594203127 S32.10XD [id number] Sam Lewis MD [facility] [place] [address] [place] [address] 05/28/2024 12:49:30 06/12/2024 09:52:33 Closed fracture lumbar vertebra, burst 859067919 S32.011G [id number] 1 . L1 Burst Fracture with Kyphotic Deformity: - Showing appropriat e healing with no interval changes on imaging- Continue activities as tolerated- Monitor left-sided radicular symptoms- Will obtain new MRI if symptoms worsen 2. Right Shoulder Impingemen t Syndrome:- New finding- Will schedule separate appointmen t for detailed evaluation 3. Cervical Spine Complaints :- Will schedule separate appointmen t for evaluation 4. Follow-up: - Return to clinic as needed for lumbar spine- Separate appointmen ts to be scheduled for cervical spine and right shoulder evaluation ICD-10: S32.009A - Fracture of unspecifie d lumbar vertebraIC D-10: M54.16 - Radiculopa thy, lumbar regionICD- 10: M25.511 - Pain in right shoulderIC D-10: M75.41 - Impingemen t syndrome of right shoulder [id number] Sam Lewis MD [facility] [place] [address] [address] 07/19/2024 12:45:50 07/31/2024 13:49:42 Cervical spondylosis [id number] M47.812 [id number] Impingemen t syndrome of right shoulder region [id number] M75.41 [id number] RUIZ [facility] - [place] [address] [place] [address] 08/21/2024 13:48:34 09/02/2024 07:54:17 Osteoarthritis of joint of right shoulder region [id number] M19.640 [id number] Impingemen t syndrome of right shoulder region [id number] M75.41 [id number] Health Concerns Section Related Observation LastModified by Organization Detai ls LastModified Time None Recorded Concern Status LastModified by Organization Details LastModified Time None Recorded Advance Directives Directive None Recorded Payers Insurance Date Sequence Insurance Name Policy Number Policy Maria Covered Member ID Maria Member ID Guarantor Name 10/02/2024 1 MEDICARE B-AR: [facility] Blaine Tamez [id number] Blaine Tamez 10/02/2024 2 MEDICAID-AR: [facility] Blaine Tamez [id number] Blaine Tamez Notes Date Note Type Note Provider Name and Address Organization Details Recorded Time 5 text/html ROS as noted in the HPI Blaine is an 73-year-old gentleman who is seen today in urgent care for his low back. He has been followed by Ms. White and Dr. Hall in the past after he fell off a ladder back in November. He reports he has developed some low back pain he thinks that it may be from his bed very uncomfortable. Pain is primarily through the low back no weakness no numbness. He is seen today for further evaluation. Natalee Fernandez, OPHTHALMIC ASSISTANT [address], [place], [address], [facility] 02/16/2024 15:10:32 5 text/html Lumbar Spine Evaluation - Post-traumatic L1 Compression Fracture and Sacral Fracture Subjective:73-year-old male presenting for follow-up evaluation of lumbar spine injuries sustained from a 20-foot fall on November 04. Patient reports current symptoms of back tightness and pressure, with occasional numbness in the left foot. He denies severe pain but notes increased discomfort with certain positions and activities. Sleep is disturbed by his current bed situation, and he is pursuing Medicare approval for a hospital bed. Patient describes worsening symptoms with prolonged urinary retention and when his dog pulls while walking. He takes Tylenol for pain management with adequate relief. The patient had a brief hospitalization following the injury, complicated by post-operative ileus that resolved. Past medical history significant for open heart surgery 9 years ago. Patient recently started vitamin supplements and has been performing home exercises. Objective: PHYSICAL EXAM:Respiration Rate 14-16Height and Weight per aboveNormal Development without evidence of gross deformitiesOriented to person/place/timeNormal mood and affectNo swelling in bilateral lower extremitiesHead and Neck: Neck was supple without evidence of defects. No atrophy of the neck was visualized.Ambulates with a caneSpine:Examination of the spine demonstrated no crepitation with palpation of the spinous process.The patient was able to flex and extend. No instability of the spine was demonstrated on physical exam. The spine had good strength and tone.No scars noted. No skin or hair changes - Musculoskeletal: Gibbous deformity noted in thoracolumbar region. Tenderness across lower back- Neurological: Motor strength 5/5 in bilateral lower extremities. Sensation intact to light touch. Reports subjective numbness in left foot- Gait: Able to perform heel and toe walking Imaging:- I independently reviewed 4 view radiographs of the lumbar spine obtained today to include AP, lateral, flexion and extension and note: : L1 compression fracture with 26-degree kyphotic deformityI independently reviewed MRI Lumbar Spine (02/25/2024):* L1 burst fracture with 75% height loss and minimal retropulsion* Central and lateral recess stenosis, more pronounced on left* L2-3 right-sided lateral recess stenosis* Mild central stenosis at L4-5* Right sacral fracture with interval healing* Persistent edema at L1 and sacral fracture sites on STIR sequences Assessment and Plan:1. L1 Burst Fracture with Kyphotic Deformity- Stable with ongoing provide healing- Conservative management appropriate given moderate symptoms and patient preference- Continue Tylenol as needed for pain 2. Right Sacral Fracture- Showing interval healing on imaging- Continue current management approach 3. Treatment Plan:- Referral to physical therapy for structured rehabilitation program- Continue vitamin D supplementation- Cleared for gradual return to activities as tolerated, with caution- Follow-up appointment in 3 months with repeat imaging- Patient counseled on activity modifications and warning signs Sam Lewis MD [address], [place], [address], [facility] 03/05/2024 14:33:30 5 text/html H PI: 74-year-old male presents for cervical spine evaluation with history of prior lumbar spine treatment. Patient reports bilateral neck pain, worse on the right side, with associated numbness and tingling affecting both hands. He experiences numbness in his face and reports visual changes when turning his head. Patient notes right-sided weakness and describes whole body numbness and shaking upon waking. Symptoms worsen with watching TV and certain sleeping positions. No constant neck pain reported.Past Treatments: Currently taking Tylenol, blood pressure medication, and vitamins. Previously tried gabapentin. Uses hospital bed for sleep positioning.Medical History: Notable for lumbar burst fracture with mild retropulsion, history of whiplash injury from catching in doorway, childhood shoulder fracture, and trauma to throat/shoulder area approximately 10 years ago at age 59. Sam Lewis MD [address], [place], [address], [facility] 07/19/2024 14:21:29 5 text/html I am seeing the patient today under the supervision of Dr. Henley who was available but who did not see the patient. Diagnosis: Right shoulder pain, impingement tendinitis, AC joint arthritis, possible rotator cuff tear HPI: Blaine is a 74-year-old male who is referred to my clinic by Dr. Lewis for evaluation and treatment of right shoulder pain. Also having some complaint of mild left shoulder pain recently seen by Dr. Lewis 1 month ago and on clinical exam had findings of impingement of the right shoulder and now is referred for orthopedic shoulder evaluation. Patient reports difficulty with over shoulder height reaching. He has nighttime pain. Past Medical/Surgical History/Meds/Allergies reviewed and charted Physical Exam: The patient is well appearing and in no apparent distress. Alert and oriented x3. Gait is symmetric. afebrile, vital signs stable, in no apparent distress, oriented to person/place/time. Gait symmetric. skin intact without erythema. Right SHOULDER: no significant redness, warmth or deformity. Range of motion well-preserved near normal range of motion. Slight discomfort at end ranges of rotation. Strength normal 5/5 with resisted rotator cuff strength testing. Normal mechanics. Impingement sign positive. Acromioclavicular joint tender to palpation and some pain with cross body adduction. Apprehension negative. Neurovascular Exam within normal limits. Contralateral normal SHOULDER: no redness, warmth, deformity. Range of motion full in all planes with no stiffness. Strength 5/5 all muscle groups. Apprehension negative. Impingement sign negative. Acromioclavicular joint benign with no cross body adduction pain. Neurovascular Exam wnl. Peripheral, vascular, lymphatic examination, skin, neurological, coordination, reflexes, sensation are within normal limits. Radiographs: 2 views of the right shoulder from 07/19/2024 office visit once again reviewed today at [facility]. AP and outlet views show AC joint arthritic changes. Mild arthritis of the humeral head with small inferior spur. Well-preserved tuberosity. Well-preserved humeral acromial space and no humeral migration noted. No calcifications found. Type II flat acromion found. Impression: Right shoulder pain with impingement tendinitis, AC joint arthritis, glenohumeral arthritis and possible rotator cuff tear Plan: Patient's clinical exam does not support rotator cuff tear. He has excellent motion and strength. Findings consistent with impingement. Treatment options discussed with the patient. Recommended a cortisone injection for the right shoulder today. Given his mild symptoms on the left elected to hold off on left shoulder injection. He is made an appointment in 6 weeks for follow-up regarding both shoulders and if symptomatic would consider left shoulder injection. He also would likely need repeat radiographs of both shoulders. - Medical Practice speech recognition coil winding machines set up mechanic software was used to create portions of this document. An attempt at proofreading has been made to minimize errors. Please call for corrections. Chip Gregg PA-C [address] [place] [address], [place], [address], [facility] - [facility] 08/23/2024 07:28:47 OBGyn Episode No OBEpisode recorded.
--- OUTSIDE RECORDS SUMMARY | 2024-12-24 15:28 | XMS_ITS | Clinical Summary ---
Author Organization [employer] Address [address] [place] [address] [address] [place] [address] Care Team Providers Care Oncologist Name Role Phone Unavailable Primary Care Provider Unavailabl e Allergies Active Allergy Reactions Criticality Noted Date Comments Cat Dander Other 10/28/2022 Mite (D. Farinae) 10/28/2022 DUSTMITES Molds & Smuts 10/28/2022 Medications ipratropium (Atrovent) 0.03 % nasal spray Administer 21 mcg into affected nostril(s). 3 Active lisinopril-hydr oCHLOROthiazide 20-25 MG tablet Take 1 tablet by mouth in the morning. 3 Active lisinopril-hydr oCHLOROthiazide 20-25 MG tablet Take 1 tablet by mouth. 3 Active Active Problems Problem Noted Date Diagnosed Date History of tooth extraction 05/05/2023 Open fracture of tooth with nonunion 04/13/2023 Periapical periodontitis 03/14/2023 Fractured dental religious with loss of materi al 12/27/2022 Partial edentulism 10/28/2022 Severe generalized gingival recession 10/28/2022 Dental caries into pulp 10/28/2022 Dental plaque 10/28/2022 Excessive attrition of tooth enamel 10/28/2022 Social History Tobacco Use Types Packs/Day Years Used Date Smoking Tobacco: Former Cigarettes Smokeless Tobacco: Never Tobacco Cessation:Counseling Given: Not Answered Alcohol Use Standard Drinks/Week Comments Defer 0 (1 standard drink = 0.6 oz pur e alcohol) Sex and Gender Information Value Date Recorded Sex Assigned at Male 12/13/2021 10:35 AM EDT Legal Sex Male 10:35 AM EDT Gender Identity Male 12/13/2021 10:35 AM EDT Sexual Orientation Straight 12/13/2021 10 :35 AM EDT Last Filed Vital Signs Vital Sign Reading Time Taken Comments Blood Pressure 136/76 05/11/2023 7:53 AM EDT Pulse 68 04/13/2023 1:26 PM EST Temperature - - Respiratory Rate - - Oxygen Saturation - - Inhaled Oxygen Concentration - - Weight - - Height - - Body Mass Index - - Plan of Treatment Upcoming Encounters Date Type Department Care Team (Late st Contact Info) Description 12/26/2024 9:30 AM EST Office Visit [facility] [address] [place] [address] Kanika Hernandez Health Maintenance Due Date Last Done Comments CT Colonography 1949 Colonoscopy 1949 Colorectal Cancer Screening 1949 Depression Screening 1950 FIT DNA/Cologuard 1949 FIT 1949 FOBT 1949 Lipid Panel 1949 SDOH Screening 1950 Sigmoidoscopy 1949 Alcohol/Substance Use Screening 1961 Hepatitis C Screening 06/29/1967 DTaP/Tdap/Td Vaccines (1 - Tdap) 02/14/1997 02/13/1997 Zoster Vaccines (1 of 2) 06/29/1999 Dental X-Ray: Full Mouth 05/30/2021 05/29/2018 Dental Oral Exam 04/29/2023 10/28/2022, 06/2021, 09/04/2020, Additional history exists Dental Prophylaxis 04/29/2023 10/28/2022, 0 06/17/2021, 10/27/2020, Additional history exists Dental X-Ray: Bitewings 10/30/2023 10/29/19 23, 09/04/2020, 05/29/2018 Tobacco Screening 05/10/2024 05/11/2023 RSV Patients and Patients Aged 60 years or older (1 - 1-dose 75+ series) 2024 COVID-19 Vaccine ( - season) 2024 05/18/2021, 05/18/2020, 04/27/2020 Influenza Vaccine (#1) 2024 , 01/29/2015, 01/25/2013 Pneumococcal Vaccine: 50+ Years Completed 02/05/2016, 07/31/2014 HIB Vaccines Aged Out No longer eligi ble based on patient's age to complete this topic HPV Vaccines Aged Out No longer eligi ble based on patient's age to complete this topic Hepatitis A Vaccines Aged Out No long er eligible based on patient's age to complete this topic Hepatitis B Vaccines Aged Out No long er eligible based on patient's age to complete this topic IPV Vaccines Aged Out No longer eligi ble based on patient's age to complete this topic Meningococcal B Vaccine Aged Out No l onger eligible based on patient's age to complete this topic Meningococcal Vaccine Aged Out No clay[place] avelino eligible based on patient's age to complete this topic RSV under 20 months Aged Out No longe r eligible based on patient's age to complete this topic Rotavirus Vaccines Aged Out No longer eligible based on patient's age to complete this topic Procedures Procedure Name Priority Date/Time Associated Diagnosis Comments Full PROPHYLAXIS - ADULT Routine 023 10:00 AM EDT Dental plaque BITEWINGS - 4 RADIOGRAPHIC IMAGES Routine 10/28/2022 10:00 AM EDT Missing teeth, acquired Severe generalized gingival recession Dental caries Dental plaque Excessive attrition of tooth enamel PERIODIC ORAL EVALUATION - ESTABLISHED PATIENT Routine 10/28/2022 10:00 AM EDT INTRAORAL - COMPLETE SERIES OF RADIOGRAPHIC IMAGES Routine 05/29/2018 12:00 AM EDT from Last 3 Months or Most Recently Relevant to Health Maintenance Insurance DENTAL - [facility] FULL (MEDICAID)
== END 2024-12-24 13:52 | disposition home or self-care (01) ==
LOC: HO.HAP 13:51
PROVIDERS: Visit Provider Family Medicine
DX: Z13.89 Encounter for screening for other disorder (principal)